=== PATIENT | female | born 1980 | race Caucasian/White ===

== ENCOUNTER 2019-09-02 13:27 | Emergency (ER) | payer MEDICAID, SELFPAY ==
[~2019-09-02] VITALS: Ht 154.9 cm; Wt 88.5 kg
[2019-09-02 15:00] VITALS: BP 145/85; Ht 154.9 cm; Wt 88.5 kg
== END 2019-09-02 15:44 | disposition home or self-care (01) ==
LOC: ED 13:27
DX: U07.1 COVID-19 (principal); J06.9 Acute upper respiratory infection, unspecified
CPT/HCPCS: U0003-CS